=== PATIENT | female | born 1980 | race Caucasian/White ===

== ENCOUNTER 2019-06-13 09:14 | Emergency (ER) | payer SELFPAY ==
[~2019-06-13] VITALS: Ht 167.6 cm; Wt 49.0 kg
[2019-06-13 09:20] VITALS: BP 132/81
[2019-06-13] MEDS ORDERED: LIDOcaine 1% w/EPI 1:200,000 injection 10mL vial IM ONE (09:30)
[2019-06-13] MEDS ORDERED: acetaminophen 325mg tablet PO ONE (09:30)
[2019-06-13] MEDS ORDERED: LIDOcaine 1% W/epiNEPHrine 1:200,000 10ml vial IJ ONE (09:35)
== END 2019-06-13 11:16 | disposition home or self-care (01) ==
LOC: ER 09:15
DX: S01.81XA Laceration without foreign body of other part of head, initial encounter (principal); S16.1XXA Strain of muscle, fascia and tendon at neck level, initial encounter; S80.211A Abrasion, right knee, initial encounter; V19.9XXA Pedal cyclist (driver) (passenger) injured in unspecified traffic accident, initial encounter; Y93.89 Activity, other specified; Y92.488 Other paved roadways as the place of occurrence of the external cause; Y99.8 Other external cause status
CPT/HCPCS: 12013; 12052; 99284